=== PATIENT | female | born 1980 | race Caucasian/White ===

== ENCOUNTER 2017-01-29 01:42 | Inpatient (IN) | payer BC ==
[~2017-01-29] VITALS: Ht 175.3 cm; Wt 70.5 kg
[2017-01-29] MEDS ORDERED: NURSING VERBAL MED ORDER ONE ×2 (02:15)
[2017-01-29 02:33] LABS: HEMATOCRIT 36.1 % (37-47); MEAN CELL VOLUME 92.1 fL (80-100); MEAN CORPUSCULAR HEMOGLOBIN 31.4 pg (25-34); MEAN CORPUSCULAR HGB CONC 34.1 g/dl (32-36); MEAN PLATELET VOLUME 9.6 fL (7.4-10.4); PLATELET COUNT 126 K/uL (130-400); RED BLOOD COUNT 3.92 M/uL (4.2-5.4); WHITE BLOOD COUNT 7.82 K/uL (4.8-10.8)
[2017-01-29] MEDS ORDERED: PENICILLIN G POTASSIUM IV 6 MU in DEXTROSE 5% 250ML IV SCH (02:45)
[2017-01-29] MEDS ORDERED: LACTATED RINGER'S 1000ML 1,000 ML IV PRN (03:00)
[2017-01-29 03:17] VITALS: Ht 175.3 cm; Wt 70.5 kg
[2017-01-29] MEDS ORDERED: PRENTAB26 PO (03:23)
[2017-01-29] MEDS ORDERED: CHOL1TAB42 (03:24)
[2017-01-29] MEDS: PENICILLIN G POTASSIUM IV 3 MU in DEXTROSE 5% 100ML IV PRN ×2 (06:32→10:38)
[2017-01-29] MEDS: LACTATED RINGER'S 1000ML 1,000 ML IV SCH ×2 (06:39→09:44)
[2017-01-29] MEDS ORDERED: LACTATED RINGER'S 1000ML 500 ML IV PRN ×2 (08:15→10:51)
--- NOTE | 2017-01-29 08:43 | HISTORY & PHYSICAL EXAMINATION ---
DATE OF ADMISSION: 01/29/2017 CHIEF COMPLAINT: Spontaneous rupture of membranes at 0100 on 01/29/2017. HISTORY OF PRESENT ILLNESS: This is a 36-year-old G4, P2, due date 01/23/2017, making her 40 weeks and 6 days today. The patient presented to labor and delivery this morning with spontaneous rupture of membranes at 0100. The patient was admitted. She has been in labor and delivery since this morning. She has no contractions. heart rate, however, is category 1. Vaginal exam shows she is 3 cm, 50% effaced, and -2. The patient has no shortness of breath, no chills, no fever. SROM is confirmed. course has been unremarkable. The patient with advanced maternal age and SROM, MFM for consult. First trimester screen and MSAFP are both negative. PAST MEDICAL HISTORY: None. PAST SURGICAL HISTORY: History of dental surgery and history of skin tag removal. FAMILY HISTORY: Noncontributory. ALLERGIES: No known drug allergies. LABORATORIES: Blood type is B positive. The patient is GBS positive. 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 PHYSICAL EXAMINATION: GENERAL: Well-developed, well-nourished white female in no acute distress. HEART: S1, S2, regular rhythm and rate. LUNGS: Clear to auscultation bilaterally. ABDOMEN: Gravid. Bedside ultrasound shows cephalic presentation. PELVIC: She is 3 cm, 50% effaced, and -2. EXTREMITIES: No cyanosis, clubbing or edema. ASSESSMENT AND PLAN: A 36-year-old G4, P2, at 40+ weeks, spontaneous rupture of membranes at 0100. The patient has no contractions. Plan, therefore, is to start Pitocin augmentation. Discussed Pitocin with the patient, the patient has agreed. The patient is already on antibiotics for GBS.
[2017-01-29] MEDS: OXYTOCIN 30 UNITS/500ML NSS IV PRN ×2 (09:00→12:51)
[2017-01-29] MEDS ORDERED: EpHEDrine SULFATE INJ 50 MG/ML AMP ONE (09:58)
[2017-01-29] MEDS ORDERED: BUPIVACAINE 0.25% 30 ML VIAL ONE (09:58)
[2017-01-29] MEDS ORDERED: FENTANYL 2MCG/ML ROPIV 1.25MG/ML 100ML BAG EPI ONE (10:00)
[2017-01-29] MEDS ORDERED: NALOXONE HCL INJ 1 MG in SODIUM CHLORIDE 0.9% 1000ML 1,000 ML IV PRN (10:51)
[2017-01-29] MEDS ORDERED: ONDANSETRON INJ 2 MG/ML 2 ML VIAL IV PRN (11:00)
[2017-01-29] MEDS ORDERED: NALOXONE HCL INJ 0.4 MG/1 ML VIAL/CARP IV PRN (11:00)
[2017-01-29] MEDS ORDERED: DiphenhydrAMINE HCL 50 MG/ML VIAL IV PRN (11:00)
[2017-01-29] MEDS ORDERED: EpHEDrine SULFATE INJ 50 MG/ML AMP IV PRN (11:00)
[2017-01-29] MEDS ORDERED: FENTANYL 2MCG/ML ROPIV 1.25MG/ML 100ML BAG EPI PRN (11:00)
[2017-01-29] MEDS ORDERED: NALBUPHINE HCL INJ 10 MG/ML AMP IV PRN (11:00)
[2017-01-29] MEDS ORDERED: METHYLERGONOVINE MALEATE 0.2 MG/ML AMP ONE (11:56)
[2017-01-29] MEDS ORDERED: MISOPROSTOL 200 MCG TAB ONE (13:21)
[2017-01-29] MEDS ORDERED: LANOLIN OINT EXT PRN ×2 (13:45)
[2017-01-29] MEDS ORDERED: IBUPROFEN 600 MG TAB PO PRN (13:45)
[2017-01-29] MEDS ORDERED: OXYTOCIN 30 UNITS/500ML NSS IV PRN (13:45)
[2017-01-29] MEDS ORDERED: ACETAMINOPHEN 325 MG TAB PO PRN (13:45)
[2017-01-29] MEDS ORDERED: MISOPROSTOL 200 MCG TAB PR SCH (13:45)
[2017-01-29] MEDS ORDERED: HYDROCORTISONE ACETATE 25 MG SUPP PR PRN (13:45)
[2017-01-29] MEDS ORDERED: METHYLERGONOVINE MALEATE 0.2 MG/ML AMP IM ONE (13:45)
[2017-01-29] MEDS ORDERED: ACETAMINOPHEN/CODEINE 300/30MG TAB PO PRN ×2 (13:45)
[2017-01-29] MEDS ORDERED: SUPERCREAM 0.870 % 15GM JAR EXT PRN (13:45)
[2017-01-29] MEDS ORDERED: OXYCODONE/ACETAMINOPHEN 5-325 TAB PO PRN (13:45)
[2017-01-29] MEDS ORDERED: BENZOCAINE 20% AER SPR 82.5 GM CAN EXT PRN (13:45)
--- NOTE | 2017-01-29 14:01 | Anesthesia Procedure Note ---
Anesthesia Epidural Removal Nt Date & Time Jan 29, 2017 at 14:02 Vital Signs Pain Intensity: 0.0 Notes Mental Status: alert / awake / arousable, participated in evaluation Nausea / Vomiting: adequately controlled Pain: adequately controlled Airway Patency, RR, SpO2: stable & adequate BP & HR: stable & adequate Hydration State: stable & adequate Neuraxial Anesthesia: was administered, sensory block is resolving Anesthetic Complications: no major complications apparent, pt satisfied with anesthetic care Epidural: removed without complications, with tip intact
[2017-01-29 15:15] VITALS: BP 104/66; PULSE 84; TEMP 36.7; O2SAT 96
[2017-01-29 19:15] VITALS: BP 95/59; PULSE 85; TEMP 36.8; O2SAT 96
[2017-01-29] MEDS: DOCUSATE SODIUM 100 MG CAP PO SCH (19:44)
--- NOTE | 2017-01-29 20:20 | DELIVERY SUMMARY ---
DATE OF OPERATION: 01/29/2017 The patient delivered a live infant, female, in right occiput anterior presentation. There was loose nuchal cord which was easily reduced. was delivered. Cord was clamped and cut and infant placed on mother's abdomen. Placenta was spontaneously delivered. Inspection of the perineum showed second-degree midline laceration which was repaired in layers with Vicryl. 's Apgars 9 and 9. Estimated blood loss is 500 mL. Mother and baby are doing well in recovery. All instruments are removed from the vagina and accounted for x2 including sponges and needles. I attest to the content of the Intraoperative Record and any orders documented therein. Any exceptio ns are noted below.
[2017-01-29 23:15] VITALS: BP 99/64; PULSE 79; TEMP 36.7; O2SAT 95
[2017-01-30 03:20] VITALS: BP 104/70; PULSE 79; TEMP 36.8; O2SAT 96
[2017-01-30] MEDS ORDERED: MTR600X PO (07:10)
--- NOTE | 2017-01-30 07:11 | Discharge Instructions ---
Discharge Instructions Date of Service Jan 30, 2017. Admission Reason for Admission: Check Ruptured Membranes Discharge Discharge Diagnosis / Problem: Vaginal Delivery Discharge Goals Goal(s): Routine recovery after delivery Medications Continue Dispensed Medications: supercream, dermaplast, tucks, lansinoh Activity Recommendations Activity Limitations: per Instructions/Follow-up section . Instructions / Follow-Up Instructions / Follow-Up ACTIVITY RECOMMENDATIONS: * Gradual return to full activity over the next 2-3 weeks. * No lifting - nothing heavier than baby over the next 2-3 weeks. * Do not engage in vigorous exercise, sexual activity or sports until cleared by your physician. * Do not drive or operate any motorized equipment until cleared by your physician. * You may shower/bathe daily. BREAST CARE: If you are not breast feeding: * Wear a supportive bra 24 hours a day for one to two weeks. * Avoid stimulating your breasts and nipples as much as possible during the first few weeks after delivery. * When taking a shower, have the warm water hit your back, not breasts. * When your breasts feel full, apply ice packs. Usually three to four times a day helps ease the discomfort. * Take a mild pain medication (Tylenol/Motrin) when you are uncomfortable. If breast feeding: * Use breast milk to lubricate nipples. Lansinoh cream may be used for sore nipples. You do not need to remove cream prior to breast feeding. If using a different brand of cream, check the label for directions regarding removal of cream prior to nursing. * Wear a supportive bra. * If having problems with breasts or breast feeding, call a actuarial consultant or your health care provider. EPISIOTOMY CARE: After delivery, if you have an episiotomy (stitches), the following steps will ease discomfort and aid healing. * For the first 24 hours after delivery, place ice packs next to your episiotomy to help reduce swelling. * After the first 24 hour-period, sitz baths, either portable or in the tub, are suggested. A shower with a shower arm sprayed over the episiotomy may be comforting. * Charo care should be done after each voiding and bowel movement. Squirt warm water from a plastic bottle over the perineum (region of the body between the anus and urinary opening) and pat dry. * Use Dermoplast to ease discomfort. Shake container. Mcconnell directly over the episiotomy. * Place a Tucks on a clean sanitary pad next to your episiotomy. OVER THE COUNTER MEDICATION: * For discomfort or pain, you may use Acetaminophen (Tylenol), Ibuprofen (Advil ), or Naproxen (Aleve) following the package directions. * For constipation you may use Colace following the package directions. SPECIAL CARE INSTRUCTIONS: When you are discharged from the hospital, it is important for you to follow the instructions listed below: * During the first week at home, you should be able to care for yourself and your baby. In addition, the usual light household activities are encouraged. * Limit your activities to the way you feel. Do not try to clean the house or move furniture. Be sensible. * If you actively engage in sports and have done so up until the time of your delivery, you may resume these activities as soon as you feel able. This may take up to one month or even longer. Use good judgment. * Continue to take your vitamins for at least six weeks after the of your baby. * Your diet need not be limited unless you were on a special diet before your delivery. Breast-feeding mothers need around 2500 calories per day and at least 64-80 ounces of fluid per day (8 to 10 glasses). * You should eat foods from the four major food groups. Crash diets or fad diets are to be avoided. Eating lean meats, fresh fruits and vegetables, low-fat dairy products, high fiber foods and a regular exercise program, will help you get back to your pre- weight without putting your health at risk. * Constipation is sometimes a problem after delivery. Take a mild laxative as needed. If breast feeding, Milk of Magnesia is acceptable to use. You may use a suppository or Fleets enema if no episiotomy. * A daily shower or tub bath is suggested. Be sure to thoroughly and gently dry the perineum. * A bloody vaginal discharge will usually continue until around four weeks post . A small amount of bleeding may continue for as long as six weeks. Vaginal discharge changes from the bright red bleeding after delivery to pink then brownish and finally yellowish-pink before becoming white and disappearing. * Bleeding may increase with activity. Your first period may come in 4-8 weeks. If you are breast feeding, your period may be delayed even longer. * Laramie (sex) can begin whenever both you and your partner feel comfortable and do not have any form of genital infection. It is recommended that you wait until after your return appointment and discuss with your physician. If you have questions, please talk to your health care practitioner. A condom should be used to prevent infection and . * Foreplay, gentle intercourse and lubrication is very important the first several times to prevent pain. A water-based lubricant such as K-Y jelly or Astroglide may be used. * Tampons may be used six weeks after delivery. * Douching should be avoided for 6 weeks after delivery. * If you have RH negative blood and your baby is RH positive, you will receive RHOGAM by injection prior to discharge. The nurse will give you a card to keep with you that has the date and place that you received RHOGAM after delivery. * During your care, you had a Rubella screen done to check for the presence of rubella antibodies in your blood. If your test was negative, you will receive a Rubella vaccine prior to discharge. This vaccine may cause a fever, soreness at the injection site and flu-like symptoms. If these symptoms persist, notify your health care practitioner. is not advised for three months after a Rubella vaccine. There is a higher chance of having a baby with defects if conceived within three months of getting the vaccine. * If you were discharged 24 hours from delivery or before 48 hours: Visiting nurses will come to your home 48 hours after discharge to assess you and your baby. The visiting nurse will meet with you while you are in the hospital to arrange a time and get directions to your home. * Verbalizes understanding of car seat law as reviewed with patient nursing. * Car Seat hand-out given and reviewed with patient by nursing. * Shaken baby information reviewed with patient by nursing. Call you doctor if: * Heavy bleeding (saturating several pads an hour) or passing clots the size of your fist. * A fever >101 degrees F (38.3 degrees C) on two occasions four hours apart and/or chills. * Unusual pain in the pelvic or vaginal areas. * "Baby Blues" lasting longer than two weeks. If you have any questions or concerns, call your health care practitioner at . FOLLOW-UP VISIT: * Please call the office at to schedule a 6 week examination. It is important you keep this appointment. * It is important for you to make arrangements for either yearly or twice yearly check-ups thereafter. Current Hospital Diet Patient's current hospital diet: Kosher Diet Discharge Diet Recommended Diet: Regular OB Diet Pending Studies Studies pending at discharge: no Medical Emergencies . Who to Call and When: Medical Emergencies: If at any time you feel your situation is an emergency, please call 911 immediately. . Non-Emergent Contact Non-Emergency issues call your: Primary Care Provider, Advanced Developer . . "Provider Documentation" section prepared by Ronnie Chandra. VTE Core Measure Inpt VTE Proph given/why not?: Treatment not indicated
--- NOTE | 2017-01-30 07:13 | OB/GYN Progress Note ---
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 Subjective conversation w/ patient, physical exam Ambulation: ambulating normally Voiding: no voiding problems Passing Gas: Yes Diet Tolerance: Regular Diet Lochia: Moderate Feeding Type: Breast Feeding Pain: 2/10 Notes: Doing well, no concerns. Pain well controlled. Lochia decreasing. Tolerating regular diet. Ambulating without difficulty. Objective Vital Signs Date Time Temp Pulse Resp B/P Pulse Ox O2 Delivery O2 Flow Rate FiO2 01/30/17 03:20 36.8 79 18 104/70 96 Room Air 01/29/17 23:15 36.7 79 18 99/64 95 Room Air 01/29/17 23:15 95 Room Air 01/29/17 19:15 36.8 85 18 95/59 96 Room Air 01/29/17 15:15 96 Room Air 01/29/17 15:15 36.7 84 16 104/66 96 Room Air Physical Exam General Appearance: WELL-APPEARING Respiratory/Chest: chest non-tender, lungs clear Cardiovascular: regular rate, rhythm Abdomen: normal bowel sounds, soft Fundus: Firm Extremities: normal range of motion, non-tender Assessment and Plan Post- Day Number: 1 Continue Routine Care: -D/C home today -F/U in 6 weeks.
[2017-01-30 07:30] VITALS: BP 105/66; PULSE 80; TEMP 36.8; O2SAT 96
[2017-01-30] MEDS: DOCUSATE SODIUM 100 MG CAP PO SCH ×2 (08:58→20:09)
[2017-01-30] MEDS: FERROUS SULFATE 325 MG TAB PO SCH (08:59)
[2017-01-30] MEDS: PRENATAL VITAMIN TAB PO SCH (08:59)
[2017-01-30 11:00] VITALS: BP 96/62; PULSE 79; TEMP 36.6; O2SAT 96
[2017-01-30 15:30] VITALS: BP 95/58; PULSE 80; TEMP 36.7; O2SAT 96
[2017-01-30] MEDS ORDERED: BISACODYL 5 MG TABEC PO SCH (20:00)
[2017-01-31 00:30] VITALS: BP 99/60; PULSE 74; TEMP 36.6; O2SAT 96
[2017-01-31] MEDS ORDERED: BISACODYL 10 MG SUPP PR PRN (07:00)
[2017-01-31 08:00] VITALS: BP 96/56; PULSE 76; TEMP 36.7
[2017-01-31] MEDS ORDERED: MISC-1040 (08:39)
--- NOTE | 2017-01-31 08:42 | OB/GYN Progress Note ---
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 Subjective conversation w/ patient, physical exam Ambulation: ambulating normally Voiding: no voiding problems Passing Gas: Yes Diet Tolerance: Regular Diet Objective Vital Signs Date Time Temp Pulse Resp B/P Pulse Ox O2 Delivery O2 Flow Rate FiO2 01/31/17 08:00 36.7 76 18 96/56 Room Air 01/31/17 00:30 36.6 74 18 99/60 96 Room Air 01/31/17 00:30 96 Room Air 01/30/17 15:30 36.7 80 20 95/58 96 Room Air 01/30/17 15:30 96 Room Air 01/30/17 11:00 36.6 79 18 96/62 96 Room Air Physical Exam General Appearance: WELL-APPEARING, NO APPARENT DISTRESS Abdomen: non tender, soft Fundus: Firm Extremities: normal range of motion, no pedal edema, no calf tenderness Assessment and Plan Post- Day Number: 2 Continue Routine Care: discharged
[2017-01-31] MEDS: DOCUSATE SODIUM 100 MG CAP PO SCH (11:31)
[2017-01-31] MEDS: PRENATAL VITAMIN TAB PO SCH (11:31)
[2017-01-31] MEDS: FERROUS SULFATE 325 MG TAB PO SCH (11:32)
[2017-01-31 15:14] VITALS: BP_DIAS 56; PULSE 76; TEMP 36.7
== END 2017-01-31 15:17 | disposition home or self-care (01) | DRG 775 ==
LOC: C.LD 01:42 → C.OPB 01:42 → C.LD 02:00 → C.OBG 15:00
PROVIDERS: ADMIT Obstetrics & Gynecology; ATTEND Obstetrics & Gynecology
PROC: 0KQM0ZZ Repair Perineum Muscle, Open Approach (ICD-10-PCS; principal; 2017-01-29)
PROC: 10E0XZZ Delivery of Products of Conception, External Approach (ICD-10-PCS; principal; 2017-01-29)
DX: O48.0 Post-term pregnancy (principal); O99.824 Streptococcus B carrier state complicating childbirth; O69.81X0 Labor and delivery complicated by cord around neck, without compression, not applicable or unspecified; O70.1 Second degree perineal laceration during delivery; Z37.0 Single live birth; Z3A.40 40 weeks gestation of pregnancy

== ENCOUNTER 2017-03-31 18:13 | Emergency (ER) | payer BC ==
[~2017-03-31] VITALS: Ht 175.3 cm; Wt 65.5 kg
[~2017-03-31 18:13] MED LIST: CHOL1TAB42; MISC-1040; MTR600X PO; PRENTAB26 PO
[2017-03-31] MEDS ORDERED: SODIUM CHLORIDE 0.9% 1000ML 2,000 ML IV STA (18:28)
[2017-03-31] MEDS ORDERED: KETOROLAC TROMETHAMINE 30 MG/ML VIAL IV STA (18:28)
[2017-03-31] MEDS ORDERED: ACETAMINOPHEN 500 MG TAB PO STA (18:28)
[2017-03-31] MEDS ORDERED: ONDANSETRON INJ 2 MG/ML 2 ML VIAL IV STA (18:28)
[2017-03-31 18:31] VITALS: Ht 175.3 cm; Wt 65.5 kg
--- NOTE | 2017-03-31 18:33 | EMERGENCY ROOM VISIT NOTE ---
History Report prepared by Mervat: [place] Under the Supervision of: Amelia DardenO. First contact with patient: 18:21 Chief Complaint: FEVER Stated Complaint: FEVER, BACK PAIN, HEMATURIA, DIFFICULTY BREATHING History of Present Illness The patient is a 36 year old female who presents to the Emergency Room with complaints of a worsening cough and fever that began four days prior to arrival. The patient states that her symptoms began four days ago with a fever and cough, and significantly worsened today at 1500, 3.5 hours prior to arrival. She claims that her persistent cough today caused severe back pain. This back pain prohibited her from being able to stand or walk this evening. Her back pain is worsened by deep breaths, which is making her feel short of breath. The patient notes that her abdomen has started to hurt today as well, and she is nauseous. The patient has not taken any fever reducers in the past two days. She denies any urinary symptoms. The patient is currently breast feeding. 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 A total of 10 systems reviewed and were otherwise negative. Past Medical & Surgical Surgical Problems: (1) Hx of section Family History Hypertension Social History Smoking Status: Never Smoker Drug Use: none Marital Status: Housing Status: lives with family Current/Historical Medications Scheduled Albuterol Hfa (Ventolin Hfa), 1 PUFF INH Q4 Cefdinir (Omnicef), 300 MG PO Q12H Multivit/Min/Iron/Fol Ac/Pren ( Vitamin), 1 TAB PO DAILY Scheduled PRN Ibuprofen (Ibuprofen), 600 MG PO Q4H PRN for PAIN, NARAYAN, CRAMPING OR FEVER Miscellaneous Medications Cholecalciferol (Vitamin D) Durable Medical Equipment Misc. Devices (AmLiveNinja Elite Breast Pump), EA Allergies Coded Allergies: No Known Allergies (Unverified , 03/31/17) Physical Exam Vital Signs Date Time Temp Pulse Resp B/P Pulse Ox O2 Delivery O2 Flow Rate FiO2 03/31/17 21:00 37.9 93 16 94/51 95 03/31/17 20:00 38.7 85 16 92/52 92 Room Air 03/31/17 18:47 97 Room Air 03/31/17 18:16 39.4 114 20 91/48 97 Room Air Physical Exam GENERAL: Patient is awake, alert, and mildly anxious appearing. Comfortable. EYES: The conjunctivae are clear. The pupils are round and reactive. EARS, NOSE, MOUTH AND THROAT: The nose is without any evidence of any deformity. Mucous membranes are dry. tongue is midline NECK: The neck is nontender and supple. RESPIRATORY: Normal respiratory effort is noted there is no evidence of wheezing rhonchi or rales CARDIOVASCULAR: Tachycardiac rate and rhythm noted there no murmurs rubs or gallops normal S1 normal S2 GASTROINTESTINAL: The abdomen is soft. Bowel sounds are present in all quadrants. Abdomen is nontender BACK: No midline tenderness or or step-off noted range of motion in flexion extension as well as rotation no signs of muscle spasm noted MUSCULOSKELETAL/EXTREMITIES: There is no evidence of gross deformity full range of motion is noted in the hips and shoulders SKIN: There is no obvious evidence of any rash. There are no petechiae, pallor or cyanosis noted. NEUROLOGIC: Patient is awake alert and oriented x3. Medical Decision & Procedures ER Provider Diagnostic Interpretation: Radiology results as stated below per my review and radiologist interpretation: SINGLE VIEW CHEST CLINICAL HISTORY: Sepsis. FINDINGS: An AP, portable, upright chest radiograph is obtained. No prior studies are available for comparison at the time of dictation. The examination is degraded by portable technique and patient rotation. The cardiomediastinal silhouette is normal for projection. There is patchy airspace consolidation suggested at the left lung base in the retrocardiac region. The lungs are otherwise clear. No large pleural effusion or pneumothorax is seen. The bony thorax is grossly intact. IMPRESSION: Suspect airspace consolidation at the left lung base in the retrocardiac region. Correlate clinically for evidence of pneumonia. Radiographic follow-up to resolution is recommended. Electronically signed by: Chapo Aly M.D. 03/31/2017 7:38 PM Dictated Date/Time: 03/31/2017 7:36 PM Laboratory Results 03/31/17 18:40 Red Blood Count 4.41, Mean Corpuscular Volume 90.9, Mean Corpuscular Hemoglobin 29.7, Mean Corpuscular Hemoglobin Concent 32.7, Mean Platelet Volume 9.3, Neutrophils (%) (Auto) 81.1, Lymphocytes (%) (Auto) 9.8, Monocytes (%) (Auto) 8.2, Eosinophils (%) (Auto) 0.1, Basophils (%) (Auto) 0.2, Neutrophils # (Auto) 8.79, Lymphocytes # (Auto) 1.06, Monocytes # (Auto) 0.89, Eosinophils # (Auto) 0.01, Basophils # (Auto) 0.02 03/31/17 18:40 Test 03/31/17 18:35 03/31/17 18:40 03/31/17 18:48 Urine Color DK YELLOW Urine Appearance CLEAR (CLEAR) Urine pH 5.0 (4.5-7.5) Urine Specific [place] 1.031 (1.000-1.030) Urine Protein 2+ (NEG) Urine Glucose (UA) NEG (NEG) Urine Ketones 4+ (NEG) Urine Occult Blood 2+ (NEG) Urine Nitrite NEG (NEG) Urine Bilirubin NEG (NEG) Urine Urobilinogen NEG (NEG) Urine Leukocyte Esterase TRACE (NEG) Urine WBC (Auto) 10-30 /hpf (0-5) Urine RBC (Auto) 5-10 /hpf (0-4) Urine Hyaline Casts (Auto) 10-30 /lpf (0-5) Urine Epithelial Cells (Auto) >30 /lpf (0-5) Urine Bacteria (Auto) NEG (NEG) Urine Renal Epithelial Cells /lpf (0-5) Urine Mucus PRESENT (NONE PRSENT) White Blood Count 10.83 K/uL (4.8-10.8) Red Blood Count 4.41 M/uL (4.2-5.4) Hemoglobin 13.1 g/dL (12.0-16.0) Hematocrit 40.1 % (37-47) Mean Corpuscular Volume 90.9 fL (80-100) Mean Corpuscular Hemoglobin 29.7 pg (25-34) Mean Corpuscular Hemoglobin Concent 32.7 g/dl (32-36) Platelet Count 171 K/uL (130-400) Mean Platelet Volume 9.3 fL (7.4-10.4) Neutrophils (%) (Auto) 81.1 % Lymphocytes (%) (Auto) 9.8 % Monocytes (%) (Auto) 8.2 % Eosinophils (%) (Auto) 0.1 % Basophils (%) (Auto) 0.2 % Neutrophils # (Auto) 8.79 K/uL (1.4-6.5) Lymphocytes # (Auto) 1.06 K/uL (1.2-3.4) Monocytes # (Auto) 0.89 K/uL (0.11-0.59) Eosinophils # (Auto) 0.01 K/uL (0-0.5) Basophils # (Auto) 0.02 K/uL (0-0.2) RDW Standard Deviation 42.6 fL (36.4-46.3) RDW Coefficient of Variation 12.8 % (11.5-14.5) Immature Granulocyte % (Auto) 0.6 % Immature Granulocyte # (Auto) 0.06 K/uL (0.00-0.02) Erythrocyte Sedimentation Rate 63 mm/hr (0-21) Prothrombin Time 10.9 SECONDS (9.0-12.0) Prothromb Time International Ratio 1.0 (0.9-1.1) Activated Partial Thromboplast Time 30.6 SECONDS (21.0-31.0) Partial Thromboplastin Ratio 1.2 Anion Gap 10.0 mmol/L (3-11) Est Creatinine Clear Calc Drug Dose 104.4 ml/min Estimated GFR () 115.1 Estimated GFR (Non- 99.3 BUN/Creatinine Ratio 14.9 (10-20) Calcium Level 9.1 mg/dl (8.5-10.1) Magnesium Level 2.2 mg/dl (1.8-2.4) Total Bilirubin 1.6 mg/dl (0.2-1) Aspartate Amino Transf (AST/SGOT) 17 U/L (15-37) Alanine Aminotransferase (ALT/SGPT) 34 U/L (12-78) Alkaline Phosphatase 91 U/L (45-117) Total Creatine Kinase 74 U/L (26-192) C-Reactive Protein 24.70 mg/dl (0-0.29) Total Protein 8.2 gm/dl (6.4-8.2) Albumin 3.9 gm/dl (3.4-5.0) Globulin 4.3 gm/dl (2.5-4.0) Albumin/Globulin Ratio 0.9 (0.9-2) Lipase 178 U/L (73-393) Human Chorionic Gonadotropin, Qual NEG (NEG) Bedside Lactic Acid Venous 1.08 mmol/L (0.90-1.70) Laboratory results per my review. Medications Administered Medications (Trade) Dose Ordered Sig/Luis Carlos Route Start Time Stop Time Status Last Admin Dose Admin Acetaminophen (Tylenol Tab) 1,000 mg NOW STAT PO 03/31/17 18:28 03/31/17 18:31 DC 03/31/17 18:46 1,000 MG Ondansetron HCl 4 mg 4 mg NOW STAT IV 03/31/17 18:28 03/31/17 18:31 DC 03/31/17 18:45 4 MG Sodium Chloride (Nss 1000ml) 2,000 ml @ 999 mls/hr Q2H1M STAT IV 03/31/17 18:28 03/31/17 20:28 DC 03/31/17 18:45 999 MLS/HR Ceftriaxone Sodium (Rocephin Inj) 1 gm NOW STAT IV 03/31/17 19:53 03/31/17 19:54 DC 03/31/17 19:58 1 GM ED Course 3: The patient was evaluated in room A11. A complete history and physical examination were performed. 1827: Ordered Sodium Chloride 2000 mL @ 999 mL/hr IV, Zofran 4 mg IV, Tylenol 1000 mg PO, Toradol 30 mg IV. 1952: Ordered Rocephin 1 gm IV. 2101: Upon reevaluation, the patient is resting in bed. I discussed the results and treatment plan with her. She verbalized agreement of the treatment plan. The patient was discharged home. Medical Decision The patient's history was concerning for fever. Differential diagnosis: Etiologies such as viral syndrome, otitis, pharyngitis, pneumonia, influenza, meningitis, urinary tract infection, sepsis, bacteremia, as well as others were entertained. Nursing notes reviewed. The patient is a 36-year-old female who presented to the emergency department for evaluation of cough. The patient had fever and cough as well as back pain. The patient was tachycardic and her blood pressure was borderline although review of her previous medical records does show she has a history of hypotension. The patient was treated with IV fluids and IV antibiotics for presumed pneumonia noted on chest x-ray. I discussed the patient's laboratory and radiographic studies with her. She was encouraged to drink plenty clear liquids and continue all medications as prescribed. She was also encouraged to continue using Tylenol as directed for fever. She was also encouraged follow-up with primary care physician within the next few days for reevaluation but return to the emergency department immediately if symptoms change worsen or if the need arises. Impression Primary Impression: Pneumonia Additional Impression: Fever Scribe Attestation The scribe's documentation has been prepared under my direction and personally reviewed by me in its entirety. I confirm that the note above accurately reflects all work, treatment, procedures, and medical decision making performed by me. Departure Information Dispostion Home / Self-Care Prescriptions Albuterol Hfa (VENTOLIN HFA) 200 Puffs/07604 Mcg Aers 1 PUFF INH Q4, #1 INHALER Prov: Alfredo Clayton, DO 03/31/17 Cefdinir (Omnicef) 300 Mg Cap 300 MG PO Q12H, #20 CAP Prov: Alfredo Clayton, DO 03/31/17 Referrals Jose De Jesus M.D. ([facility]) (PCP) Forms HOME CARE DOCUMENTATION FORM, IMPORTANT VISIT INFORMATION Patient Instructions My [facility] Additional Instructions Continue all medications as prescribed. Continue using Tylenol as directed for fever. Start the antibiotic tomorrow evening. Call your family to schedule a follow-up appointment. Return to the emergency department immediately if symptoms change worsen or the need arises. Problem Qualifiers Primary Impression: Pneumonia Pneumonia type: due to unspecified organism Laterality: left Lung location : lower lobe of lung Qualified Codes: J18.1 - Lobar pneumonia, unspecified organism Additional Impression: Fever Fever type: unspecified Qualified Codes: R50.9 - Fever, unspecified
[2017-03-31 18:47] VITALS: O2SAT 97
[2017-03-31 18:53] LABS: BASO % 0.2 %; BASO ABS # 0.02 K/uL (0-0.2); COMPLETE YES; EOS % 0.1 %; HEMATOCRIT 40.1 % (37-47); IG% 0.6 %; LYMPH % 9.8 %; LYMPH ABS # 1.06 K/uL (1.2-3.4); MEAN CELL VOLUME 90.9 fL (80-100); MEAN CORPUSCULAR HEMOGLOBIN 29.7 pg (25-34); MEAN CORPUSCULAR HGB CONC 32.7 g/dl (32-36); MEAN PLATELET VOLUME 9.3 fL (7.4-10.4); MONO % 8.2 %; NEUT % 81.1 %; PLATELET COUNT 171 K/uL (130-400); RED BLOOD COUNT 4.41 M/uL (4.2-5.4); WHITE BLOOD COUNT 10.83 K/uL (4.8-10.8)
[2017-03-31 18:59] LABS: URINE APPEARANCE CLEAR (CLEAR); URINE COLOR DK YELLOW; URINE EPITHELIAL CELL AUTO >30 /lpf (0-5); URINE NITRITE NEG (NEG); URINE SPECIFIC GRAVITY 1.031 (1.000-1.030); UROBILINOGEN NEG (NEG); ZZUR CULT IF INDIC CLEAN CATCH YES
[2017-03-31 19:07] LABS: PARTIAL THROMBOPLASTIN RATIO 1.2; PROTHROMBIN TIME (PATIENT) 10.9 SECONDS (9.0-12.0)
[2017-03-31 19:10] LABS: BUN/CREATININE RATIO 14.9 (10-20); CALCIUM 9.1 mg/dl (8.5-10.1); CREATININE 0.77 mg/dl (0.60-1.20); MAGNESIUM 2.2 mg/dl (1.8-2.4); POTASSIUM 3.6 mmol/L (3.5-5.1)
[2017-03-31 19:14] LABS: MANUAL MICROSCOPIC REQUIRED? NO; REVIEW REQ? YES
[2017-03-31 19:15] LABS: URINE BILIRUBIN NEG (NEG)
[2017-03-31 19:20] LABS: ALB/GLOB RATIO 0.9 (0.9-2); C-REACTIVE PROTEIN 24.7 mg/dl (0-0.29)
[2017-03-31 19:23] LABS: PREG INTERNAL NEGATIVE QC NEG CLEAR BACKGROUND; PREG INTERNAL POSITIVE QC POS CONTROL LINE
[2017-03-31 19:30] LABS: URINE MUCUS PRESENT (NONE PRSENT)
--- NOTE | 2017-03-31 19:39 | DIAGNOSTIC IMAGING REPORT ---
SINGLE VIEW CHEST CLINICAL HISTORY: Sepsis. FINDINGS: An AP, portable, upright chest radiograph is obtained. No prior studies are available for comparison at the time of dictation. The examination is degraded by portable technique and patient rotation. The cardiomediastinal silhouette is normal for projection. There is patchy airspace consolidation suggested at the left lung base in the retrocardiac region. The lungs are otherwise clear. No large pleural effusion or pneumothorax is seen. The bony thorax is grossly intact. IMPRESSION: Suspect airspace consolidation at the left lung base in the retrocardiac region. Correlate clinically for evidence of pneumonia. Radiographic follow-up to resolution is recommended. Electronically signed by: Chapo Aly M.D. 03/31/2017 7:38 PM Dictated Date/Time: 03/31/2017 7:36 PM
[2017-03-31] MEDS ORDERED: CEFTRIAXONE SOD INJ 1 GM ADDVIAL IV STA (19:53)
[2017-03-31] MEDS ORDERED: VNTHFA/IN INH (20:37)
[2017-03-31] MEDS ORDERED: CEFD1CAP14 PO (20:37)
[2017-03-31 21:00] VITALS: BP 94/51; PULSE 93; TEMP 37.9; O2SAT 95
== END 2017-03-31 21:09 | disposition home or self-care (01) ==
LOC: C.EDB 18:14 → C.EDA 21:09
DX: J18.1 Lobar pneumonia, unspecified organism (principal); R50.9 Fever, unspecified; M54.9 Dorsalgia, unspecified; R11.0 Nausea; Z82.49 Family history of ischemic heart disease and other diseases of the circulatory system